=== PATIENT | female | born 1975 | race Caucasian/White ===

== ENCOUNTER 2023-05-27 10:19 | Outpatient (CLI) | payer OTHER, SELFPAY | END 2023-05-27 10:20 | disposition home or self-care (01) | LOC: NFLDREF 06-03 10:23 | PROVIDERS: PCP Internal Medicine; Referring Provider Internal Medicine; Visit Provider Registered Nurse | DX: R30.0 Dysuria (principal); N39.0 Urinary tract infection, site not specified; N30.01 Acute cystitis with hematuria | CPT/HCPCS: 87086 ==

== ENCOUNTER 2025-04-23 11:21 | Outpatient (CLI) | payer OTHER, SELFPAY ==
[2025-04-25 14:29] LABS: HPV Source Cervix
[2025-04-25 20:44] LABS: HPV Genotype 16 by TMA Not Detected; HPV Genotype 18/45 by TMA Not Detected
[2025-05-01 19:33] LABS: Pap Test Digital Imaging Done; Pap Test Reviewed by Pathologi Done
== END 2025-04-23 11:22 | disposition home or self-care (01) ==
PROVIDERS: PCP Family Medicine; Visit Provider Obstetrics & Gynecology
DX: Z12.4 Encounter for screening for malignant neoplasm of cervix (principal)
CPT/HCPCS: 87624; 87625; 88141; 88142; 88175